=== PATIENT | male | born 1985 | race Caucasian/White ===

== ENCOUNTER 2024-03-24 22:26 | Emergency (ER) | payer MEDICAID ==
[~2024-03-24] VITALS: Ht 170.2 cm; Wt 81.6 kg
[2024-03-24] MEDS ORDERED: CYCL5TAB PO (23:14)
[2024-03-24] MEDS ORDERED: CYCLOBENZAPRINE HCL 10 MG TABLET ONE (23:16)
[2024-03-24] MEDS ORDERED: ACETAMINOPHEN 500 MG TABLET ONE (23:16)
[2024-03-24] MEDS: ACETAMINOPHEN 500 MG TABLET PO ONE (23:17)
[2024-03-24] MEDS: CYCLOBENZAPRINE HCL 10 MG TABLET PO ONE (23:17)
[2024-03-24 23:26] VITALS: BP 136/88; TEMP 98; O2SAT 99
== END 2024-03-24 23:26 | disposition home or self-care (01) ==
LOC: ER 22:29
DX: S06.0X0A Concussion without loss of consciousness, initial encounter (principal); S16.1XXA Strain of muscle, fascia and tendon at neck level, initial encounter; S70.12XA Contusion of left thigh, initial encounter; S20.212A Contusion of left front wall of thorax, initial encounter; F17.200 Nicotine dependence, unspecified, uncomplicated; Z79.899 Other long term (current) drug therapy; Z88.0 Allergy status to penicillin; W11.XXXA Fall on and from ladder, initial encounter; Y93.89 Activity, other specified; Y92.89 Other specified places as the place of occurrence of the external cause; Y99.8 Other external cause status
CPT/HCPCS: A4606; A4663; A9150